=== PATIENT | male | born 1975 | race Caucasian/White ===

== ENCOUNTER 2023-02-17 17:10 | Emergency (ER) | payer SELFPAY ==
[2023-02-17] MEDS ORDERED: fentaNYL 100 MCG/2 ML SDV IM ONE (18:11)
[2023-02-17] MEDS ORDERED: Diphtheria,Pertussis(Acell),Tetanus Vaccine 0.5 ML Syringe IM ONE (18:39)
[2023-02-17] MEDS ORDERED: metroNIDAZOLE 250 MG Tab PO ONE (18:45)
[2023-02-17] MEDS ORDERED: Cephalexin 500 MG Cap PO ONE (18:45)
[2023-02-17] MEDS ORDERED: Take Home: Acetaminophen/oxyCODONE 325-5 MG, 5 Tab Pack PO ONE (18:48)
[2023-02-17 19:13] VITALS: BP 148/78; PULSE 77
== END 2023-02-17 19:08 | disposition home or self-care (01) ==
LOC: DL.ED 17:10
DX: S01.01XA Laceration without foreign body of scalp, initial encounter (principal); F17.210 Nicotine dependence, cigarettes, uncomplicated; Z23 Encounter for immunization; W26.8XXA Contact with other sharp object(s), not elsewhere classified, initial encounter
CPT/HCPCS: 12002; 70450; 90471; 90715; 96372; 99283; A9270; J3010; 12004; 99282